=== PATIENT | female | born 1935 | race Hispanic/Latino ===

== ENCOUNTER 2017-06-03 14:10 | Inpatient (IN) | payer MEDICARE ==
[2017-06-03 14:15] VITALS: BMI 31.2
--- NOTE | 2017-06-03 14:52 | ED PDOC ---
Arrival/HPI - General Chief Complaint: Dizziness/Lightheaded Time Seen by Provider: 06/03/17 14:48 Historian: Patient, Family (son) - History of Present Illness Narrative History of Present Illness (Text): 06/03/17 14:51 81 yo female with PMHx of HTN, OA, hypercholesterolemia, hx of ataxia, dizziness , and frequent fall, BIBA accompanied by son for evaluation of dizziness, nausea , and vomiting x 1 hour. Patient stated dizziness is different from previous. Patient denies other complains. Denies tinnitus, hearing loss, sob, cp, abdominal pain, rectal bleeding, melena, urinary symptoms, trauma, fever, hudson, weakness, paresthesias, dysarthria, dysphagia, or abnormal gait. Time/Duration: Prior to Arrival Context: Home Past Medical History - Provider Review Nursing Documentation Reviewed: Yes - Infectious Disease Hx of Infectious Diseases: None - Reproductive Menopause: Yes - Cardiac Hx Cardiac Disorders: Yes Hx Hypertension: Yes - Pulmonary Hx Respiratory Disorders: No - Neurological Hx Neurological Disorder: No - HEENT Hx HEENT Disorder: No (WEARS RX GLASSES) - Renal Hx Renal Disorder: No - Endocrine/Metabolic Hx Endocrine Disorders: No - Hematological/Oncological Hx Blood Disorders: No - Integumentary Hx Dermatological Disorder: No - Musculoskeletal/Rheumatological Hx Musculoskeletal Disorders: No - Gastrointestinal Hx Gastrointestinal Disorders: No (CONSTIPATION) - Genitourinary/Gynecological Hx Genitourinary Disorders: No - Psychiatric Hx Psychophysiologic Disorder: No Hx Substance Use: No - Anesthesia Hx Anesthesia Reactions: No Hx Malignant Hyperthermia: No - Suicidal Assessment Feels Threatened In Home Enviroment: No Family/Social History - Physician Review Nursing Documentation Reviewed: Yes Family/Social History: No Known Family HX Smoking Status: Never Smoked Hx Alcohol Use: No Hx Substance Use: No Allergies/Home Meds Allergies/Adverse Reactions: Allergies Penicillins Allergy (Verified 10/22/16 12:44) RASH Home Medications: Home Meds Medication Instructions Recorded Confirmed Atorvastatin [Lipitor] 10 mg PO DIN 03/06/14 06/03/17 Aspirin [Aspirin EC] 1 tab PO DAILY 11/27/14 06/03/17 Benazepril HCl [Lotensin] 2 mg PO DAILY 06/03/17 06/03/17 Bisacodyl [Dulcolax] 5 mg PO DAILY 06/03/17 06/03/17 Donepezil HCl [Aricept] 5 mg PO HS 06/03/17 06/03/17 Levocetirizine Dihydrochloride 5 mg PO DAILY 06/03/17 06/03/17 [Xyzal] Review of Systems - Review of Systems Constitutional: Normal. absent: Fatigue, Weight Change, Fevers, Night Sweats Eyes: Normal. absent: Vision Changes ENT: Normal. absent: Hearing Changes, Tinnitus Respiratory: Normal. absent: SOB, Cough, Sputum Cardiovascular: Normal. absent: Chest Pain, Palpitations Gastrointestinal: Nausea, Vomiting. absent: Abdominal Pain, Constipation, Diarrhea, Hematochezia, Hematemesis Genitourinary Female: Normal. absent: Dysuria, Frequency, Hematuria Musculoskeletal: Normal. absent: Back Pain, Neck Pain Skin: Normal. absent: Rash Neurological: Dizziness. absent: Headache, Focal Weakness, Gait Changes, Speech Changes, Facial Droop, Disequilibrium Endocrine: Normal Hemo/Lymphatic: Normal Psychiatric: Normal Physical Exam Vital Signs Temp Pulse Resp BP Pulse Ox 06/03/17 18:51 97.9 F 82 22 140/64 96 06/03/17 16:14 72 16 132/56 L 96 06/03/17 14:11 97.5 F L 75 16 184/90 H 97 Temperature: Afebrile Blood Pressure: Normal Pulse: Regular Respiratory Rate: Normal Appearance: Positive for: Well-Appearing, Non-Toxic, Comfortable Pain Distress: None Mental Status: Positive for: Alert and Oriented X 3 - Systems Exam Head: Present: Atraumatic, Normocephalic Pupils: Present: PERRL Extroacular Muscles: Present: EOMI. No: Entrapment Conjunctiva: Present: Normal. No: Injected Ears: Present: Normal, NORMAL TM, Normal Canal, Other (no nystagmus). No: Erythema, TM Bulging, Fluid, TM Perf Mouth: Present: Moist Mucous Membranes Pharnyx: Present: Normal. No: ERYTHEMA, EXUDATE Neck: Present: Normal Range of Motion, Trachea Midline. No: Meningeal Signs, MIDLINE TENDERNESS, Paraspinal Tenderness Respiratory/Chest: Present: Clear to Auscultation, Good Air Exchange. No: Respiratory Distress, Accessory Muscle Use, Wheezes, Retracting, Rhonchi Cardiovascular: Present: Regular Rate and Rhythm, Normal S1, S2. No: Murmurs Abdomen: Present: Normal Bowel Sounds. No: Tenderness, Distention, Peritoneal Signs Back: Present: Normal Inspection Upper Extremity: Present: Normal Inspection, Normal ROM, NORMAL PULSES, Neurovascularly Intact, Capillary Refill < 2s. No: Cyanosis, Edema Lower Extremity: Present: Normal Inspection, NORMAL PULSES, Normal ROM, Neurovascularly Intact, Capillary Refill < 2 s. No: Edema, CALF TENDERNESS Neurological: Present: GCS=15, CN II-XII Intact, Speech Normal, Motor Func Grossly Intact, Normal Sensory Function, Normal Cerebellar Funct, Memory Normal (baseline), Other (Subtle left facial paulsy) Skin: Present: Warm, Dry, Normal Color. No: Rashes Psychiatric: Present: Alert, Oriented x 3, Normal Insight, Normal Concentration Medical Decision Making ED Course and Treatment: 06/03/17 17:[address] Blake covering for Sanjuana Ballesteros, review labs, VS, and imaging report. Patient continues with unstable gait. She agrees with observation. To call Dr. Cook. Dr. Cook is on vacation, Dr. Mitchell is covering for her Dr. Mitchell agrees with plan for admission for unsteady gait Re-evaluation Time: 18:15 Reassessment Condition: Re-examined, Improving,but remains with symptoms - Lab Interpretations Lab Results: 06/03/17 15:25 06/03/17 15:25 Lab Results 06/03/17 16:58: Urine Color Yellow, Urine Appearance Clear, Urine pH 5.5, Ur Specific [place] >= 1.030, Urine Protein Negative, Urine Glucose (UA) Negative, Urine Ketones 40 H, Urine Blood Negative, Urine Nitrate Negative, Urine Bilirubin Negative, Urine Urobilinogen 0.2, Ur Leukocyte Esterase Negative 06/03/17 15:25: Sodium 141, Potassium 4.0, Chloride 110 H, Carbon Dioxide 25, Anion Gap 10, BUN 18, Creatinine 0.6, Est GFR ( Amer) > 60, Est GFR (Non- Af Amer) > 60, Random Glucose 137 H, Calcium 9.2, Total Bilirubin 0.7, AST 20, ALT 25, Alkaline Phosphatase 117, Total Protein 7.3, Albumin 3.8, Globulin 3.5, Albumin/Globulin Ratio 1.1 06/03/17 15:25: PT 10.7, INR 0.99, APTT 24.3 06/03/17 15:25: WBC 7.3, RBC 4.01, Hgb 12.4, Hct 37.8, MCV 94.3, MCH 30.9, MCHC 32.8, RDW 12.8, Plt Count 192, MPV 9.4, Gran % 83.2 H, Lymph % (Auto) 12.0 L, Lea % (Auto) 3.9, Eos % (Auto) 0.6 L, Baso % (Auto) 0.3, Gran # 6.06, Lymph # 0.9 L, Lea # 0.3, Eos # 0.0, Baso # 0.02 I have reviewed the lab results: Yes Interpretation: No clinic. lab abnormalty - RAD Interpretation Narrative RAD Interpretations (Text): 06/03/17 16:16 Accession No. : [id number] Patient Name / ID : TRACIE LUA / [id number] Exam Date : 06/03/2017 15:36:13 ( Approved ) Study Comment : Sex / Age : F / 82Y Creator : Edenilson Hamilton MD Dictator : Edenilson Hamilton MD Unit Manager Rn : Church Warden : Edenilson Hamilton MD Approver2 : Report Date : 06/03/2017 15:52:32 My Comment : PROCEDURE: CT HEAD WITHOUT CONTRAST. HISTORY: dizziness COMPARISON: 08/11/2016 TECHNIQUE: Axial computed tomography images were obtained through the head/brain without intravenous contrast. Radiation dose: Total exam DLP = 734 mGy-cm. This CT exam was performed using one or more of the following dose reduction techniques: Automated exposure control, adjustment of the mA and/or kV according to patient size, and/or use of iterative reconstruction technique. FINDINGS: HEMORRHAGE: No intracranial hemorrhage. BRAIN: No mass effect or edema. No atrophy or chronic microvascular ischemic changes. VENTRICLES: Unremarkable. No hydrocephalus. CALVARIUM: Unremarkable. PARANASAL SINUSES: Unremarkable as visualized. No significant inflammatory changes. MASTOID AIR CELLS: Unremarkable as visualized. No inflammatory changes. OTHER FINDINGS: None. IMPRESSION: Normal CT of the Head. Radiology Orders: 06/03/17 15:09 HEAD W/O CONTRAST [CT] Stat - EKG Interpretation Interpreted by ED Physician: Yes (Sinus rhyth with PAC @ [address] changes) Type: 12 lead EKG Comparison: No previous EKG avail. - Medication Orders Current Medication Orders: Aspirin (Ecotrin) 81 mg PO DAILY [facility] Last Admin: 06/04/17 10:32 Dose: 81 mg Atorvastatin Calcium (Lipitor) 10 mg PO DIN RAGINI Donepezil HCl (Aricept) 5 mg PO HS RAGINI Lisinopril (Zestril) 20 mg PO DAILY [facility] Last Admin: 06/04/17 10:31 Dose: 20 mg Discontinued Medications Sodium Chloride (Sodium Chloride 0.9%) 500 mls @ 999 mls/hr IV .Q31M STA Stop: 06/03/17 15:41 Last Admin: 06/03/17 15:24 Dose: 999 mls/hr Lisinopril (Zestril) 20 mg PO DAILY [facility] Meclizine HCl (Antivert) 50 mg PO STAT STA Stop: 06/03/17 15:12 Last Admin: 06/03/17 15:25 Dose: 50 mg Non-Formulary Medication (Benazepril Hcl [Lotensin]) 2 mg PO DAILY [facility] Ondansetron HCl (Zofran Inj) 4 mg IVP STAT STA Stop: 06/03/17 15:10 Last Admin: 06/03/17 15:25 Dose: 4 mg NIHSS Scale ([place]) Time Performed: 17:00 - How Severe is the Stoke Baseline Level of Consciousness: 0=Alert LOC to Questions: 0=Both comments correct LOC to commands: 0=Obeys both correctly Best Gaze: 0=Normal Visual: 0=No visual loss Facial: 1=Minor asymmetry Motor Arm - Left: 0=No drift Motor Arm - Right: 0=No drift Motor Leg - Left: 0=No drift Motor Leg - Right: 0=No drift Limb Ataxia: 0=Absent Sensory: 0=Normal Best Language: 0=No aphasia Dysarthia: 0=Normal articulation Extinction & Inattention (Neglect): 0=Normal, no object Score: 1 Risk Level: Minor Stroke Risk Disposition/Present on Arrival - Present on Arrival Any Indicators Present on Arrival: No History of DVT/PE: No History of Uncontrolled Diabetes: No Urinary Catheter: No History of Decub. Ulcer: No History Surgical Site Infection Following: None - Disposition Have Diagnosis and Disposition been Completed?: Yes Diagnosis: Unsteady gait, Dizziness, nonspecific, Adult failure to thrive Disposition: HOSPITALIZED Disposition Time: 18:20 Patient Plan: Admission Patient Problems: Current Active Problems Problem Status Onset Adult failure to thrive Acute Dizziness, nonspecific Acute Unsteady gait Chronic Condition: GOOD
[2017-06-03] MEDS ORDERED: Sodium Chloride 0.9% 500 ML IV STA (15:11)
[2017-06-03 15:37] LABS: BASO # 0.02 K/mm3 (0.0-2.0); BASO % 0.3 % (0.0-3.0); EOS % 0.6 % (1.5-5.0); GRAN # 6.06 (1.4-6.5); GRAN % 83.2 % (50.0-68.0); HEMOGLOBIN 12.4 gm/dL (12.0-16.0); LYMPH # 0.9 (1.2-3.4); MEAN CELL VOLUME 94.3 fL (80.0-105.0); MEAN CORPUSCULAR HEMOGLOBIN 30.9 pg (25.0-35.0); MEAN CORPUSCULAR HGB CONC 32.8 g/dl (31.0-37.0); MEAN PLATELET VOLUME 9.4 fl (7.0-11.0); MONO # 0.3 (0.1-0.6); MONO % 3.9 % (1.0-6.0); PLATELET COUNT 192 10^3/uL (120.0-450.0); RBC 4.01 10^6/uL (3.5-6.1); RED CELL DISTRIBUTION WIDTH 12.8 % (11.5-14.5); WHITE BLOOD COUNT 7.3 10^3/ul (4.5-11.0)
[2017-06-03 15:48] LABS: INR 0.99 (0.93-1.08); PARTIAL THROMBOPLASTIN TIME 24.3 Seconds (23.7-30.8); PROTHROMBIN TIME 10.7 Seconds (9.9-11.8)
[2017-06-03 15:50] LABS: ALB/GLOB RATIO 1.1 (1.1-1.8); ALBUMIN 3.8 g/dL (3.0-4.8); ALT/SGPT 25 U/L (7-56); AST/SGOT 20 U/L (15-39); BLOOD UREA NITROGEN 18 mg/dL (7-21); CALCIUM 9.2 mg/dL (8.4-10.5); GFR AFRICAN-AMERICAN > 60; GFR NON-AFRICAN AMERICAN > 60
--- NOTE | 2017-06-03 15:54 | CT ---
PROCEDURE: CT HEAD WITHOUT CONTRAST. HISTORY: dizziness COMPARISON: 08/11/2016 TECHNIQUE: Axial computed tomography images were obtained through the head/brain without intravenous contrast. Radiation dose: Total exam DLP = 734 mGy-cm. This CT exam was performed using one or more of the following dose reduction techniques: Automated exposure control, adjustment of the mA and/or kV according to patient size, and/or use of iterative reconstruction technique. FINDINGS: HEMORRHAGE: No intracranial hemorrhage. BRAIN: No mass effect or edema. No atrophy or chronic microvascular ischemic changes. VENTRICLES: Unremarkable. No hydrocephalus. CALVARIUM: Unremarkable. PARANASAL SINUSES: Unremarkable as visualized. No significant inflammatory changes. MASTOID AIR CELLS: Unremarkable as visualized. No inflammatory changes. OTHER FINDINGS: None. IMPRESSION: Normal CT of the Head.
[2017-06-03 17:15] LABS: PH,URINE 5.5 (4.7-8.0); URINE BILIRUBIN NEGATIVE (NEGATIVE); URINE BLOOD NEGATIVE (NEGATIVE); URINE GLUCOSE (UA) NEGATIVE (NEGATIVE); URINE LEUKOCYTE ESTERASE NEGATIVE Leu/uL (NEGATIVE); URINE NITRATE NEGATIVE (NEGATIVE); URINE PROTEIN NEGATIVE mg/dL (<30 mg/dL); URINE UROBILINOGEN 0.2 E.U./dL (<1 E.U./dL)
[2017-06-03 17:19] LABS: URINE APPEARANCE CLEAR (CLEAR); URINE COLOR YELLOW (YELLOW)
--- NOTE | 2017-06-04 07:58 | CP.PCM.CON ---
<Topher Whyte - Last Filed: 06/04/17 16:24> History of Present Illness - History of Present Illness History of Present Illness: PGY-[address] Wililam's Neurology Service: Reason for consult: unsteady gait This is an 82 yo female with PMHx of HTN, OA, hypercholesterolemia, known ataxia , dizziness, and frequent falls was admitted to the hospital for evaluation of dizziness and unsteady gait. Of note, she had also complained of nausea and vomiting. Patient states that she was walking to her kitchen when she felt unsteady on her feet and was holding onto the wall. Patient is unable to accurately describe the sensation but felt that her head did not feel right. Patient denies chest pain, palpitations, headache, neck pain, weakness at the time of onset. Patient is currently resting comfortably with no complaints. Patient states that she considers her left leg to be diminished in function compared to the right but does not know of any significant pathology in her lower extremities. PMHx: HTN, OA, Hypercholesteremia, frequent falls PSHx: Unspecified right shoulder surgery 3 months ago Allergies: Penicillin Social: Denies tobacco, alcohol, drugs. Home Meds: As per EMR Review of Systems - Constitutional Constitutional: Frequent Falls. absent: Headache - EENT Eyes: absent: Change in Vision - Cardiovascular Cardiovascular: absent: Chest Pain - Respiratory Respiratory: absent: Dyspnea - Gastrointestinal Gastrointestinal: Constipation (chronic). absent: Abdominal Pain, Diarrhea, Nausea, Vomiting - Genitourinary Genitourinary: absent: Dysuria - Musculoskeletal Musculoskeletal: Muscle Weakness (left lower extremity) - Neurological Neurological: Frequent Falls. absent: Dizziness, Numbness, Headaches, Paresthesias, Syncope - Endocrine Endocrine: absent: Palpitations Past Patient History - Infectious Disease Hx of Infectious Diseases: None - Past Social History Smoking Status: Never Smoked - CARDIAC Hx Cardiac Disorders: Yes Hx Hypercholesterolemia: Yes Hx Hypertension: Yes Other/Comment: ble variscosities - PULMONARY Hx Respiratory Disorders: No - NEUROLOGICAL Hx Neurological Disorder: (memory loss, ataxia) - HEENT Hx HEENT Problems: No (WEARS RX GLASSES) - RENAL Hx Chronic Kidney Disease: No - ENDOCRINE/METABOLIC Hx Endocrine Disorders: No - HEMATOLOGICAL/ONCOLOGICAL Hx Blood Disorders: No - INTEGUMENTARY Hx Dermatological Problems: No - MUSCULOSKELETAL/RHEUMATOLOGICAL Hx Falls: Yes (past) - GASTROINTESTINAL Hx Gastrointestinal Disorders: No (CONSTIPATION takes dulcolax) - GENITOURINARY/GYNECOLOGICAL Hx Genitourinary Disorders: No - PSYCHIATRIC Hx Substance Use: No - SURGICAL HISTORY Hx Surgeries: No - ANESTHESIA Hx Anesthesia Reactions: No Hx Malignant Hyperthermia: No Meds Allergies/Adverse Reactions: Allergies Allergy/AdvReac Type Severity Reaction Status Date / Time Penicillins Allergy RASH Verified 10/22/16 12:44 Physical Exam - Constitutional Appears: Non-toxic, No Acute Distress - Head Exam Head Exam: ATRAUMATIC, NORMAL INSPECTION, NORMOCEPHALIC - Eye Exam Eye Exam: EOMI, PERRL - ENT Exam ENT Exam: Mucous Membranes Moist - Respiratory Exam Respiratory Exam: Clear to Auscultation Bilateral - Cardiovascular Exam Cardiovascular Exam: REGULAR RHYTHM - GI/Abdominal Exam GI & Abdominal Exam: Normal Bowel Sounds, Soft - Neurological Exam Neurological exam: Alert, CN II-XII Intact, Oriented x3 - Expanded Neurological Exam Expanded Upper motor neuron: Babinski Sign: Normal, Pronator Drift: Normal Sensory exam: Lower Extremity Light Touch: Normal, Upper Extremity Light Touch: Normal Neuro motor strength exam: Left Upper Extremity: 5, Right Upper Extremity: 5, Left Lower Extremity: 4, Right Lower Extremity: 5 DTR: Achilles Tendon Left: 1+, Achilles Tendon Right: 2+, Bicep Left: 1+, Bicep Right: 2+, Brachioradialis Left: 1+, Brachioradialis Right: 2+, Patellar Left: 1 +, Patellar Right: 2+, Tricep Left: 1+, Tricep Right: 2+ - Skin Additional comments: Varicose veins bilateral lower extremities Results - Vital Signs Recent Vital Signs: Last Vital Signs Temp 97.9 F 06/03/17 22:43 Pulse 82 06/03/17 22:43 Resp 22 06/03/17 22:43 BP 140/64 06/03/17 22:43 Pulse Ox 99 06/03/17 20:53 - Labs Result Diagrams: 06/03/17 15:25 06/03/17 15:25 Assessment & Plan - Assessment and Plan (Free Text) Assessment: This is an 82 yo female with PMHx of HTN, OA, hypercholesterolemia, known ataxia , dizziness, and frequent falls was admitted to the hospital for evaluation of dizziness and unsteady gait. Dizziness most likely attributable to vertigo and deconditioned state. Plan: 1) Orthostatic vitals were negative 2) Recommend outpatient PT for unsteady gait and left lower extremity weakness Case discussed with Dr. Stewart Whyte PGY-1 - Date & Time Date: 06/04/17 Time: 08:30 <Salvatore William - Last Filed: 06/04/17 17:06> Results - Vital Signs Recent Vital Signs: Last Vital Signs Temp 97.6 F 06/04/17 08:16 Pulse 62 06/04/17 10:31 Resp 20 06/04/17 08:16 BP 117/56 L 06/04/17 10:31 Pulse Ox 97 06/04/17 08:16 - Labs Result Diagrams: 06/03/17 15:25 06/03/17 15:25 Labs: Laboratory Results - last 24 hr 06/04/17 06/04/17 06/04/17 09:30 09:30 09:30 Hemoglobin A1c 6.1 Triglycerides 78 Cholesterol 152 LDL Cholesterol Direct 89 HDL Cholesterol 47 TSH 3rd Generation 0.41 L Attending/Attestation - Attestation I have fully participated in the care of the patient.: Yes I have reviewed all pertinent clinical information: Yes
[2017-06-04 08:15] VITALS: BP 117/56; PULSE 62; RESP 20; TEMP 97.6; O2SAT 97
--- NOTE | 2017-06-04 08:43 | CP.PCM.CON ---
History of Present Illness - History of Present Illness History of Present Illness: Reason for consultation: CAD 82 year old female with pMhx CAD non Obst S/p cath , mild to mod MR admitted with Dizzyness, denies chest pain, and SOB PMHX, early forgetfulness, hypeerlidemia. off on Dizzyness Previous cardiac W/u S/p cath 2006 non Obst CAd Stress test 11/25/2016.. normal myocardial perfusion study. EF-75% Echo..05/2717 EF-55% Mild to moderate Mr Mild Tr, [id number] Trace to mild AR Trace PI. Current Meds at Home ASa Lipitor 10 mg Benzapril Aricept Allergyto PCN Review of Systems - Constitutional Constitutional: As Per HPI - EENT Eyes: As Per HPI Ears: As Per HPI Nose/Mouth/Throat: As Per HPI - Breasts Breasts: As Per HPI - Cardiovascular Cardiovascular: As Per HPI - Respiratory Respiratory: As Per HPI - Gastrointestinal Gastrointestinal: As Per HPI - Genitourinary Genitourinary: As Per HPI - Reproductive: Female Reproductive:Female: As Per HPI - Musculoskeletal Musculoskeletal: As Per HPI Additional comments: gait instability - Neurological Neurological: Abnormal Gait, Vertigo Past Patient History - Infectious Disease Hx of Infectious Diseases: None - Past Social History Smoking Status: Never Smoked - CARDIAC Hx Cardiac Disorders: Yes Hx Hypercholesterolemia: Yes Hx Hypertension: Yes Other/Comment: ble variscosities - PULMONARY Hx Respiratory Disorders: No - NEUROLOGICAL Hx Neurological Disorder: (memory loss, ataxia) - HEENT Hx HEENT Problems: No (WEARS RX GLASSES) - RENAL Hx Chronic Kidney Disease: No - ENDOCRINE/METABOLIC Hx Endocrine Disorders: No - HEMATOLOGICAL/ONCOLOGICAL Hx Blood Disorders: No - INTEGUMENTARY Hx Dermatological Problems: No - MUSCULOSKELETAL/RHEUMATOLOGICAL Hx Falls: Yes (past) - GASTROINTESTINAL Hx Gastrointestinal Disorders: No (CONSTIPATION takes dulcolax) - GENITOURINARY/GYNECOLOGICAL Hx Genitourinary Disorders: No - PSYCHIATRIC Hx Substance Use: No - SURGICAL HISTORY Hx Surgeries: No - ANESTHESIA Hx Anesthesia Reactions: No Hx Malignant Hyperthermia: No Meds Allergies/Adverse Reactions: Allergies Allergy/AdvReac Type Severity Reaction Status Date / Time Penicillins Allergy RASH Verified 10/22/16 12:44 Results - Vital Signs Recent Vital Signs: Last Vital Signs Temp 97.6 F 06/04/17 08:16 Pulse 62 06/04/17 08:16 Resp 20 06/04/17 08:16 BP 117/56 L 06/04/17 08:16 Pulse Ox 97 06/04/17 08:16 - Labs Result Diagrams: 06/03/17 15:25 06/03/17 15:25 Assessment & Plan - Assessment and Plan (Free Text) Assessment: Instabilty gait HTN Hyperlipidemia early fogetfullness Mild to moderate MR Mild TR Non Obst CAd, Negative stress test ..11/25/2016. R/o orthostatic Hypotension. Plan: Check for orthostatic Bp. Liid profile TSH Physical theray Neuro eval
[2017-06-04 09:58] LABS: HDL CHOLESTEROL 47 mg/dL (29-60); LDL CHOLESTEROL 89 mg/dL (0-129)
[2017-06-04] MEDS ORDERED: BENAZEPRIL PO SCH (10:00)
--- NOTE | 2017-06-04 10:26 | CP.PCM.HP ---
History of Present Illness - History of Present Illness History of Present Illness: 82 yo female with history of recurrent falls presents with fall/unsteady gait. Admitted for further obs and mgmt. Pt seen this am NAD, able to ambulate independently without assist, denies pain. Has work-up for similar complaints multiple MRA negative. patient medically stable for discharge to home Present on Admission - Present on Admission Any Indicators Present on Admission: No History of DVT/PE: No History of Uncontrolled Diabetes: No Urinary Catheter: No Decubitus Ulcer Present: No Past Patient History - Infectious Disease Hx of Infectious Diseases: None - Past Social History Smoking Status: Never Smoked - CARDIAC Hx Cardiac Disorders: Yes Hx Hypercholesterolemia: Yes Hx Hypertension: Yes Other/Comment: ble variscosities - PULMONARY Hx Respiratory Disorders: No - NEUROLOGICAL Hx Neurological Disorder: (memory loss, ataxia) - HEENT Hx HEENT Problems: No (WEARS RX GLASSES) - RENAL Hx Chronic Kidney Disease: No - ENDOCRINE/METABOLIC Hx Endocrine Disorders: No - HEMATOLOGICAL/ONCOLOGICAL Hx Blood Disorders: No - INTEGUMENTARY Hx Dermatological Problems: No - MUSCULOSKELETAL/RHEUMATOLOGICAL Hx Falls: Yes (past) - GASTROINTESTINAL Hx Gastrointestinal Disorders: No (CONSTIPATION takes dulcolax) - GENITOURINARY/GYNECOLOGICAL Hx Genitourinary Disorders: No - PSYCHIATRIC Hx Substance Use: No - SURGICAL HISTORY Hx Surgeries: No - ANESTHESIA Hx Anesthesia Reactions: No Hx Malignant Hyperthermia: No Meds Allergies/Adverse Reactions: Allergies Allergy/AdvReac Type Severity Reaction Status Date / Time Penicillins Allergy RASH Verified 10/22/16 12:44 Results - Vital Signs Recent Vital Signs: Last Vital Signs Temp 97.6 F 06/04/17 08:16 Pulse 62 06/04/17 08:16 Resp 20 06/04/17 08:16 BP 117/56 L 06/04/17 08:16 Pulse Ox 97 06/04/17 08:16 - Labs Result Diagrams: 06/03/17 15:25 06/03/17 15:25 Labs: Laboratory Results - last 24 hr 06/04/17 09:30 Triglycerides 78 Cholesterol 152 LDL Cholesterol Direct 89 HDL Cholesterol 47 Assessment & Plan (1) Unsteady gait Status: Chronic
== END 2017-06-04 15:53 | disposition home health service (06) | DRG 149 ==
LOC: ED 14:10 → ERH 18:16 → 3RNO 19:00
PROVIDERS: ADMIT Internal Medicine; ATTEND Internal Medicine
DX: R42 Dizziness and giddiness (principal); I08.1 Rheumatic disorders of both mitral and tricuspid valves; I10 Essential (primary) hypertension; R26.81 Unsteadiness on feet; E78.00 Pure hypercholesterolemia, unspecified; E78.5 Hyperlipidemia, unspecified; I25.10 Atherosclerotic heart disease of native coronary artery without angina pectoris; R62.7 Adult failure to thrive; Z79.899 Other long term (current) drug therapy; K59.00 Constipation, unspecified; Z88.0 Allergy status to penicillin; R40.2412 Glasgow coma scale score 13-15, at arrival to emergency department; I83.93 Asymptomatic varicose veins of bilateral lower extremities; I95.1 Orthostatic hypotension

== ENCOUNTER 2018-03-12 12:54 | Emergency (ER) | payer MEDICARE ==
[2018-03-12 12:57] VITALS: BMI 32.9
--- NOTE | 2018-03-12 13:20 | ED PDOC ---
Arrival/HPI - General Chief Complaint: Dizziness/Lightheaded Time Seen by Provider: 03/12/18 13:06 Historian: Patient - History of Present Illness Narrative History of Present Illness (Text): 03/12/18 13:12 83 y/o female, pmh including htn/hyperlipidemia/vertigo, allergic to penicillin , bib son c/o feeling vertigo with the last episode about 2 days ago with no fall or trauma. Pt. thinks that the vertigo started after the of her sister 2 months ago, vertigo been on and off, no change in vision. Pt. has vertigo with nausea that started about 2 days ago and still persist, no numbness or tingling, no slurred speech, no urinary or bowel incontinence or retention, no rash, no homocidal/suicidal ideation, no auditory or visual hallucination, no other medical or psychological complaints. Pt. stated that this feels like her usual vertigo Past Medical History - Provider Review Nursing Documentation Reviewed: Yes - Infectious Disease Hx of Infectious Diseases: None - Cardiac Hx Cardiac Disorders: Yes Hx Hypertension: Yes Other/Comment: ble variscosities - Pulmonary Hx Respiratory Disorders: No - Neurological Hx Neurological Disorder: (memory loss, ataxia) - HEENT Hx HEENT Disorder: No (WEARS RX GLASSES) - Renal Hx Renal Disorder: No - Endocrine/Metabolic Hx Endocrine Disorders: No - Hematological/Oncological Hx Blood Disorders: No - Integumentary Hx Dermatological Disorder: No - Musculoskeletal/Rheumatological Hx Falls: Yes (past) - Gastrointestinal Hx Gastrointestinal Disorders: No (CONSTIPATION takes dulcolax) - Genitourinary/Gynecological Hx Genitourinary Disorders: No - Psychiatric Hx Psychophysiologic Disorder: No Hx Substance Use: No - Anesthesia Hx Anesthesia Reactions: No Hx Malignant Hyperthermia: No - Suicidal Assessment Feels Threatened In Home Enviroment: No Family/Social History - Physician Review Nursing Documentation Reviewed: Yes Family/Social History: Unknown Family HX Smoking Status: Never Smoked Hx Alcohol Use: No Hx Substance Use: No Allergies/Home Meds Allergies/Adverse Reactions: Allergies Penicillins Allergy (Verified 03/12/18 12:57) RASH Home Medications: Home Meds Medication Instructions Recorded Confirmed Atorvastatin [Lipitor] 10 mg PO DIN 03/06/14 06/03/17 Aspirin [Aspirin EC] 1 tab PO DAILY 11/27/14 06/03/17 Benazepril HCl [Lotensin] 2 mg PO DAILY 06/03/17 06/03/17 Bisacodyl [Dulcolax] 5 mg PO DAILY 06/03/17 06/03/17 Donepezil HCl [Aricept] 5 mg PO HS 06/03/17 06/03/17 Levocetirizine Dihydrochloride 5 mg PO DAILY 06/03/17 06/03/17 [Xyzal] Review of Systems - Review of Systems Constitutional: absent: Fatigue, Fevers Eyes: absent: Vision Changes ENT: absent: Hearing Changes Respiratory: absent: SOB, Cough Cardiovascular: absent: Chest Pain Gastrointestinal: absent: Abdominal Pain, Nausea, Vomiting Skin: absent: Rash, Pruritis Neurological: Dizziness. absent: Headache, Focal Weakness, Gait Changes Psychiatric: absent: Anxiety, Depression Physical Exam Vital Signs Reviewed: Yes Vital Signs Temp Pulse Resp BP Pulse Ox 03/12/18 15:10 75 18 145/71 98 03/12/18 13:35 98.0 F 80 18 147/77 98 03/12/18 12:59 97.8 F 80 18 147/77 96 Temperature: Afebrile Blood Pressure: Normal Pulse: Regular Respiratory Rate: Normal Appearance: Positive for: Well-Appearing, Non-Toxic, Comfortable Pain Distress: None Mental Status: Positive for: Alert and Oriented X 3 - Systems Exam Head: Present: Atraumatic, Normocephalic Pupils: Present: PERRL Extroacular Muscles: Present: EOMI Conjunctiva: Present: Normal Mouth: Present: Moist Mucous Membranes Neck: Present: Normal Range of Motion Respiratory/Chest: Present: Clear to Auscultation, Good Air Exchange. No: Respiratory Distress, Accessory Muscle Use Cardiovascular: Present: Regular Rate and Rhythm, Normal S1, S2. No: Murmurs Abdomen: No: Tenderness, Distention, Peritoneal Signs Back: Present: Normal Inspection Upper Extremity: Present: Normal Inspection. No: Cyanosis, Edema Lower Extremity: Present: Normal Inspection. No: Edema Neurological: Present: GCS=15, CN II-XII Intact, Speech Normal, Motor Func Grossly Intact, Gait Normal, Memory Normal, Other (no drift, normal finger to nose test, normal heel to humphries test, +[place]) Skin: Present: Warm, Dry, Normal Color. No: Rashes Psychiatric: Present: Alert, Oriented x 3, Normal Insight, Normal Concentration Medical Decision Making ED Course and Treatment: 03/12/18 13:27 -labs/ua/cardiac enzyme -ekg -CT head -CXR -IVF/meclizine -Observe and reassess 03/12/18 16:00 -EKG: SR @ 72 BPM, no ST elevation or depression, no T wave inversion. -Chest xray: no active disease -CT Head: No acute findings -Labs show no acute findings, troponin is negative -UA show +UTI, macrobid ordered -Pt. feels completely relief after the meclizine, walking with normal gait and posture in the ER, offered admission for further observation over night due to the age and comorbidities to the patient and family but they refused. -Case discussed with Dr. Matthews, he agreed on the treatment and dispo plan. -Discharge home with macrobid, meclizine, bed rest, stay hydrated, follow up with your own pmd and mechanical striper/neurologist within 2 days, return to the ER for any new or worsening signs or symptoms. - Lab Interpretations Lab Results: 03/12/18 14:00 03/12/18 14:00 Lab Results 03/12/18 14:25: Urine Color Yellow, Urine Appearance Clear, Urine pH 6.0, Ur Specific [place] >= 1.030, Urine Protein Negative, Urine Glucose (UA) Negative, Urine Ketones Negative, Urine Blood Trace-intact H, Urine Nitrate Negative, Urine Bilirubin Negative, Urine Urobilinogen 0.2, Ur Leukocyte Esterase Small H , Urine RBC 1 - 3, Urine WBC 5 - 10, Ur Epithelial Cells 4 - 5, Urine Bacteria Mod 03/12/18 14:10: POC Glucose (mg/dL) 102 03/12/18 14:00: Sodium 143, Potassium 3.9, Chloride 108 H, Carbon Dioxide 25, Anion Gap 14, BUN 17, Creatinine 0.5 L, Est GFR ( Amer) > 60, Est GFR ( Non-Af Amer) > 60, Random Glucose 96, Calcium 9.4, Total Bilirubin 0.6, AST 18, ALT 26, Alkaline Phosphatase 73, Lactate Dehydrogenase 449, Total Creatine Kinase 56, Troponin I < 0.01, NT-Pro-B Natriuret Pep 191, Total Protein 6.8, Albumin 3.9, Globulin 2.9, Albumin/Globulin Ratio 1.3 04/13/18 14:00: WBC 5.8 D, RBC 4.26, Hgb 13.4, Hct 40.6, MCV 95.3, MCH 31.5, MCHC 33.0, RDW 13.2, Plt Count 221, MPV 9.9, Gran % 49.0 L, Lymph % (Auto) 37.4 H, [place] % (Auto) 9.2 H, Eos % (Auto) 3.7, Baso % (Auto) 0.7, Gran # 2.82, Lymph # (Auto) 2.2, [place] # (Auto) 0.5, Eos # (Auto) 0.2, Baso # (Auto) 0.04 I have reviewed the lab results: Yes - RAD Interpretation Radiology Orders: 03/12/18 13:20 HEAD W/O CONTRAST [CT] Stat 03/12/18 13:22 CHEST TWO VIEWS (PA/LAT) [RAD] Stat Chest xray: CT Head: PROCEDURE: CT HEAD WITHOUT CONTRAST. HISTORY: chronic dizziness x 2 months ago, and 2 days ago COMPARISON: 06/03/2017 TECHNIQUE: Axial computed tomography images were obtained through the head/brain without intravenous contrast. Radiation dose: Total exam DLP = 810 mGy-cm. This CT exam was performed using one or more of the following dose reduction techniques: Automated exposure control, adjustment of the mA and/or kV according to patient size, and/or use of iterative reconstruction technique. FINDINGS: HEMORRHAGE: No intracranial hemorrhage. BRAIN: No mass effect or edema. No atrophy or chronic microvascular ischemic changes. VENTRICLES: Unremarkable. No hydrocephalus. CALVARIUM: Unremarkable. PARANASAL SINUSES: Unremarkable as visualized. No significant inflammatory changes. MASTOID AIR CELLS: Unremarkable as visualized. No inflammatory changes. OTHER FINDINGS: None. IMPRESSION: No acute findings Automated Weaver: Radiologist - EKG Interpretation EKG Interpretation (Text): 03/12/18 13:34 SR @ 72 BPM, no ST elevation or depression, no T wave inversion. Interpreted by ED Physician: Yes Type: 12 lead EKG Comparison: Com.w/previous EKG - Medication Orders Current Medication Orders: Sodium Chloride (Sodium Chloride 0.9%) 1,000 mls @ 75 mls/hr IV .[id number] RAGINI Last Admin: 03/12/18 13:59 Dose: 75 mls/hr eMAR Start Stop Document 03/12/18 13:59 SF (Rec: 03/12/18 13:59 [place] [email or web address] Intravenous Solution Start Date 03/12/18 Start Time 13:59 Discontinued Medications Meclizine HCl (Antivert) 50 mg PO STAT STA Stop: 03/12/18 13:24 Last Admin: 03/12/18 13:58 Dose: 50 mg Nitrofurantoin Macrocrystals (Macrobid) 100 mg PO STAT STA PRN Reason: Protocol Stop: 03/12/18 15:12 Last Admin: 03/12/18 15:49 Dose: 100 mg - PA / BAND BOOKER / Resident Statement MD/DO has reviewed & agrees with the documentation as recorded. Disposition/Present on Arrival - Present on Arrival Any Indicators Present on Arrival: No History of DVT/PE: No History of Uncontrolled Diabetes: No Urinary Catheter: No History of Decub. Ulcer: No History Surgical Site Infection Following: None - Disposition Have Diagnosis and Disposition been Completed?: Yes Diagnosis: UTI (urinary tract infection), Vertigo Disposition: HOME/ ROUTINE Disposition Time: 15:12 Patient Plan: Discharge Patient Problems: Current Active Problems Problem Status Onset UTI (urinary tract infection) Acute Vertigo Acute Condition: IMPROVED Discharge Instructions (ExitCare): Urinary Tract Infections in Adults, Vertigo (a Type of Dizziness) (DC) Additional Instructions: -Discharge home with macrobid, meclizine, bed rest, stay hydrated, follow up with your own pmd and mechanical striper/neurologist within 2 days, return to the ER for any new or worsening signs or symptoms. Prescriptions: Meclizine [Antivert] 25 mg PO Q6 #30 tab Nitrofurantoin Macrocrystals [Macrobid] 100 mg PO BID #14 cap Referrals: Talat Marcus [Staff Provider] - Follow up with primary Angelica Raymundo MD [Staff Provider] - Follow up with primary Forms: WORK NOTE
[2018-03-12] MEDS ORDERED: Sodium Chloride 0.9% 1,000 ML IV SCH (13:30)
[2018-03-12 13:36] VITALS: TEMP 98; O2SAT 98
[2018-03-12 14:32] LABS: BASO # 0.04 K/mm3 (0.0-2.0); BASO % 0.7 % (0.0-3.0); BLOOD UREA NITROGEN 17 mg/dL (7-21); EOS # 0.2 (0.0-0.7); EOS % 3.7 % (1.5-5.0); GFR AFRICAN-AMERICAN > 60; GFR NON-AFRICAN AMERICAN > 60; GRAN # 2.82 (1.4-6.5); HEMOGLOBIN 13.4 g/dL (12.0-16.0); LYMPH # 2.2 (1.2-3.4); LYMPH % 37.4 % (22.0-35.0); MEAN CELL VOLUME 95.3 fl (80.0-105.0); MEAN CORPUSCULAR HEMOGLOBIN 31.5 pg (25.0-35.0); MEAN PLATELET VOLUME 9.9 fl (7.0-11.0); MONO # 0.5 (0.1-0.6); MONO % 9.2 % (1.0-6.0); RBC 4.26 10^6/uL (3.5-6.1); RED CELL DISTRIBUTION WIDTH 13.2 % (11.5-14.5); WHITE BLOOD COUNT 5.8 10^3/ul (4.5-11.0)
[2018-03-12 14:33] LABS: ALB/GLOB RATIO 1.3 (1.1-1.8); ALBUMIN 3.9 g/dL (3.0-4.8); ALT/SGPT 26 U/L (7-56); AST/SGOT 18 U/L (14-36); CALCIUM 9.4 mg/dL (8.4-10.5)
[2018-03-12 14:44] LABS: B-TYPE NATRIURETIC PEPTIDE 191 pg/mL (0-450); TROPONIN I < 0.01 ng/mL
[2018-03-12 14:49] LABS: URINE BILIRUBIN NEGATIVE (NEGATIVE); URINE BLOOD TRACE-INTACT (NEGATIVE); URINE GLUCOSE (UA) NEGATIVE (NEGATIVE); URINE LEUKOCYTE ESTERASE SMALL Leu/uL (NEGATIVE); URINE PROTEIN NEGATIVE mg/dL (<30 mg/dL); URINE UROBILINOGEN 0.2 E.U./dL (<1 E.U./dL)
[2018-03-12 15:05] LABS: URINE APPEARANCE CLEAR (CLEAR); URINE COLOR YELLOW (YELLOW)
[2018-03-12 15:07] LABS: URINE BACTERIA MOD (NEG)
[2018-03-12] MEDS ORDERED: Tmp-Smz 800 mg-160 mg DS Tab PO STA (15:10)
--- NOTE | 2018-03-12 15:13 | CT ---
PROCEDURE: CT HEAD WITHOUT CONTRAST. HISTORY: chronic dizziness x 2 months ago, and 2 days ago COMPARISON: 06/03/2017 TECHNIQUE: Axial computed tomography images were obtained through the head/brain without intravenous contrast. Radiation dose: Total exam DLP = 810 mGy-cm. This CT exam was performed using one or more of the following dose reduction techniques: Automated exposure control, adjustment of the mA and/or kV according to patient size, and/or use of iterative reconstruction technique. FINDINGS: HEMORRHAGE: No intracranial hemorrhage. BRAIN: No mass effect or edema. No atrophy or chronic microvascular ischemic changes. VENTRICLES: Unremarkable. No hydrocephalus. CALVARIUM: Unremarkable. PARANASAL SINUSES: Unremarkable as visualized. No significant inflammatory changes. MASTOID AIR CELLS: Unremarkable as visualized. No inflammatory changes. OTHER FINDINGS: None. IMPRESSION: No acute findings
--- NOTE | 2018-03-12 15:48 | RAD ---
HISTORY: medical clearance COMPARISON: 08/11/2016 TECHNIQUE: Chest PA and lateral FINDINGS: LUNGS: No active pulmonary disease. PLEURA: No significant pleural effusion identified. No pneumothorax apparent. CARDIOVASCULAR: Normal. OSSEOUS STRUCTURES: No significant abnormalities. VISUALIZED UPPER ABDOMEN: Normal. OTHER FINDINGS: None. IMPRESSION: No active disease.
[2018-03-12 16:20] VITALS: BP 140/75; PULSE 70; RESP 17
--- NOTE | 2018-03-13 09:35 | CARD ---
APPROVED REPORT EKG Measurement Heart [id number] <Conclusion> Sinus rhythm with 1st degree AV block Voltage criteria for left ventricular hypertrophy PRWP V 4 - 6 probably lead placement
== END 2018-03-12 16:18 | disposition home or self-care (01) ==
LOC: ED 12:54
DX: N39.0 Urinary tract infection, site not specified (principal); R42 Dizziness and giddiness; E78.5 Hyperlipidemia, unspecified; I10 Essential (primary) hypertension
CPT/HCPCS: 70450; 71046; 80053; 81001; 82550; 82948; 83615; 83880; 84484; 85025; 87086; 93005; 99285; J7040